=== PATIENT | female | born 1960 | race Caucasian/White ===

== ENCOUNTER → 2016-09-12 | Outpatient (CLI) | payer OTHER ==
--- NOTE | 2016-09-13 09:23 | RAD ---
DATE: 09/12/2016 EXAM: DIGITAL SCREEN BILAT W/CAD HISTORY: Screening COMPARISON: 08/10/2015 This study was interpreted with the benefit of Computerized Aided Detection (CAD). FINDINGS: The breast parenchyma Is heterogeneiously dense, which could reduce sensitivity of mammography. Breast parenchyma level C. 2-D and tomosynthesis images were obtained. There has not been a significant change in the appearance of the breasts compared to the previous exam IMPRESSION: Benign finding BI-RADS CATEGORY: 2 BENIGN FINDING(S) RECOMMENDED FOLLOW-UP: 12M 12 MONTH FOLLOW-UP PQRS compliance statement: Patient information was entered into a reminder system with a target due date 09/12/2017 for the next mammogram. Mammography is a sensitive method for finding small breast cancers, but it does not detect them all and is not a substitute for careful clinical examination. A negative mammogram does not negate a clinically suspicious finding and should not result in delay in biopsying a clinically suspicious abnormality. "Our facility is accredited by the [employer] Mammography Program."
== END | disposition home or self-care (01) ==
LOC: MAMMO 13:23
PROVIDERS: ATTEND Nurse Practitioner
DX: Z12.31 Encounter for screening mammogram for malignant neoplasm of breast (principal)
CPT/HCPCS: G0202; 77067

== ENCOUNTER → 2018-07-30 | Outpatient (CLI) | payer OTHER ==
--- NOTE | 2018-07-30 17:28 | RAD ---
DATE: 07/30/2018 EXAM: DIGITAL SCREEN BILAT W/CAD HISTORY: Routine screening COMPARISON: 06/30/2014, 08/10/2015, and 09/12/2016 mammographic exams This study was interpreted with the benefit of Computerized Aided Detection (CAD). Breast Density: HETERO The breast parenchyma is heterogenously dense, which could reduce sensitivity of mammography. Breast parenchyma level C. FINDINGS: Asymmetry involving the right outer breast is noted correlation probably related to summation artifact. No suspicious calcification clusters, definite masses, or distortion. IMPRESSION: Asymmetry of the right outer breast. Spot compression is recommended. Ultrasound may be needed. Left breast is stable and unremarkable. BI-RADS CATEGORY: 0 INCOMPLETE: NEEDS ADDITIONAL IMAGING EVALUATION AND/OR PRIOR MAMMOGRAMS FOR COMPARISON. RECOMMENDED FOLLOW-UP: ADD ADDITIONAL IMAGING PQRS compliance statement: Patient information was entered into a reminder system with a target due date of now for the next mammogram. Mammography is a sensitive method for finding small breast cancers, but it does not detect them all and is not a substitute for careful clinical examination. A negative mammogram does not negate a clinically suspicious finding and should not result in delay in biopsying a clinically suspicious abnormality. "Our facility is accredited by the [employer] Mammography Program."
== END | disposition home or self-care (01) ==
LOC: MAMMO 14:02
PROVIDERS: ATTEND Nurse Practitioner Family
DX: Z12.31 Encounter for screening mammogram for malignant neoplasm of breast (principal)
CPT/HCPCS: 77067

== ENCOUNTER → 2018-08-13 | Outpatient (CLI) | payer OTHER ==
--- NOTE | 2018-08-13 12:11 | RAD ---
DATE: 08/13/2018 EXAM: DIGITAL DIAGNOSTIC RT HISTORY: Suspicious screening study COMPARISON: 07/30/2018, 09/12/2016 This study was interpreted with the benefit of Computerized Aided Detection (CAD). Breast Density: HETERO The breast parenchyma is heterogenously dense, which could reduce sensitivity of mammography. Breast parenchyma level C. FINDINGS: Additional views of the right breast including spot compression and CC tomosynthesis imaging was performed. A small nodule is identified in the lateral periareolar region as best seen on CC tomosynthesis images #18. Right breast ultrasound, 08/13/2018: A targeted ultrasound exam of the lateral right periareolar region was performed. At the 10:00 location there is a small predominantly cystic nodule measuring 7 x 3 x 7 cm. It is wider than tall. There is posterior acoustic enhancement. There are thin internal septations. No internal color flow is seen. The appearance is that of a septated cyst. This corresponds in location to the mammographic abnormality. No other abnormalities seen in this region. IMPRESSION: Probably benign small septated cyst in the lateral periareolar region. Sonographic surveillance beginning in 6 months in addition to regular yearly mammography is suggested. BI-RADS CATEGORY: 3 PROBABLY BENIGN FINDING(S)-SHORT INTERVAL FOLLOW-UP SUGGESTED RECOMMENDED FOLLOW-UP: 6M 6 MONTH FOLLOW-UP PQRS compliance statement: Patient information was entered into a reminder system with a target due date for the next mammogram. Mammography is a sensitive method for finding small breast cancers, but it does not detect them all and is not a substitute for careful clinical examination. A negative mammogram does not negate a clinically suspicious finding and should not result in delay in biopsying a clinically suspicious abnormality. "Our facility is accredited by the [employer] Mammography Program."
== END | disposition home or self-care (01) ==
LOC: MAMMO 10:51
PROVIDERS: ATTEND Nurse Practitioner Family
DX: N63.11 Unspecified lump in the right breast, upper outer quadrant (principal)
CPT/HCPCS: 76641; 77065

== ENCOUNTER → 2019-01-28 | Outpatient (CLI) | payer OTHER ==
--- NOTE | 2019-01-29 13:57 | RAD ---
Examination: BREAST RIGHT History: Abnormal right breast ultrasound exam Comparison/Correlation: 08/13/2018 right breast ultrasound exam, 08/13/2018 right unilateral mammographic exam, 07/30/2018 screening mammographic exam, 09/12/2016 screening mammographic exam Findings: Limited right breast ultrasound examination of the 10:00 region was performed. Complex cystic structure again is present measuring 0.7 cm x 0.7 cm x 0.3 cm tall. Septations and internal echoes are present. No flow within it. Impression: BI-RADS Category 3-probably benign. Stable complex cyst involving the right breast 10:00 region. Follow-up at the time of annual screening with ultrasound exam is recommended. Electronically signed by: Brian Selby MD (01/29/2019 1:54 PM) [facility]
== END | disposition home or self-care (01) ==
LOC: MAMMO 14:38
PROVIDERS: ATTEND Nurse Practitioner Family
DX: N60.01 Solitary cyst of right breast (principal)
CPT/HCPCS: 76641

== ENCOUNTER → 2019-09-02 | Outpatient (CLI) | payer OTHER ==
--- NOTE | 2019-09-02 20:04 | RAD ---
EXAMINATION: DIGITAL DIAGNOSTIC BILATERAL, BREAST RIGHT HISTORY: Abnormal right breast ultrasound and mammogram COMPARISON/CORRELATION: 07/30/2018, 09/12/2016, 08/10/2015, 06/30/2014 FINDINGS: Full-field digital diagnostic mammography was performed bilaterally. MLO and CC projections bilaterally were provided. CAD was utilized. The breasts are heterogeneously dense, which may obscure small masses. Small mass is evident at the right lower inner breast. This is not seen on the prior exam. Asymmetry of the posterior left outer breast does not persist upon spot compression imaging. No suspicious calcification or distortion. Limited ultrasound imaging of the right breast at the 10:00 region demonstrates a hypoechoic mass measuring 0.3 cm x 0.22 cm tall by 0.3 cm. It is well-circumscribed with a somewhat lobulated contour. No flow within it. This corresponds to the site of previously present complex cyst. At the right breast 3:00 region 2.5 cm from the nipple, there is a septated complex cystic structure with internal echoes which measures 0.6 cm x 0.53 cm tall by 0.5 cm. No flow evident within it. This finding corresponds to the new mammographic mass. IMPRESSION: BI-RADS Category: 3: Probably Benign. Six-month follow-up right diagnostic mammogram and right breast ultrasound exams recommended to assess stability. Patient information is entered into reminder system with a target due date for the next screening mammogram. Mammography is the most sensitive method for finding small breast cancers, but it does not detect them all and is not a substitute for careful clinical examination. A negative mammogram does not negate a clinically suspicious finding and should not result in delay in biopsying a clinically suspicious abnormality. "Our facility is accredited by the [employer] Mammography Program." Electronically signed by: Brian Selby MD (09/02/2019 8:01 PM) [email or web address]
== END | disposition home or self-care (01) ==
LOC: MAMMO 12:47
PROVIDERS: ATTEND Nurse Practitioner Family
DX: N63.14 Unspecified lump in the right breast, lower inner quadrant (principal); N60.11 Diffuse cystic mastopathy of right breast
CPT/HCPCS: 76641; 77066

== ENCOUNTER → 2020-03-17 | Outpatient (CLI) | payer OTHER ==
--- NOTE | 2020-03-19 08:22 | RAD ---
Examination: DIGITAL DIAGNOSTIC RT, BREAST RIGHT History: Reason: [id number] MAMMOGRAM 6 MONTH FOLLOW UP / Spl. Instructions: / History: Comparison/Correlation: None FINDINGS: Full-field digital diagnostic mammographic exam of the right breast was performed. MLO and CC projections were provided. Tomosynthesis was performed. CAD was utilized. The breasts are heterogeneously dense, which may obscure small masses. No suspicious asymmetry. No new masses previously evident in either breast asymmetry on the CC projection on 09/02/2019 is not having corresponding finding currently. There are no suspicious calcification clusters. No new masses or new distortion. Limited right breast ultrasound examination of the 10:00 region hypoechoic structure 1 cm from the nipple measures 0.2 cm 0.27 x 0.1 cm. This represents a decrease compared to previous exam by 0.1 cm in all dimensions. At the 3:00 region to 6.5 cm from nipple, there is a 0.30 0.3 cm 0.2 cm hypoechoic or complex cystic structure which is decreased in size compared to the previous exam bilaterally 0.2 cm in each dimension. Previously evident septation no longer evident. Benign-appearing axillary lymph nodes are present. IMPRESSION: Right breast - BI-RADS Category: 3: Probably Benign. Diagnostic mammographic evaluation 6 months post with ultrasound recommended to assess continued stability. Electronically signed by: Brian Selby MD (03/19/2020 8:20 AM) [email or web address]
== END | disposition home or self-care (01) ==
LOC: MAMMO 12:57
PROVIDERS: ATTEND Nurse Practitioner Family
DX: R92.2 Inconclusive mammogram (principal)
CPT/HCPCS: 76641; 77065

== ENCOUNTER → 2020-10-20 | Outpatient (CLI) | payer OTHER ==
--- NOTE | 2020-10-20 14:02 | RAD ---
PROCEDURE: MG DIAGNOSTIC BILAT, US BREAST RT HISTORY: The patient is 59 years old and is seen for Reason: 6 MONTH FOLLOW UP / Spl. Instructions: / History: . COMPARISON: Ultrasound March 17, 2020, right main bowel March 17, 2020, September 02, 2019, January [id number]. TECHNIQUE: CC and MLO views of both breasts were obtained. Images were processed by the [employer] computer-aided detection system. Right breast targeted ultrasound. DENSITY: The breast parenchyma is heterogeneously dense. This may lower the sensitivity of mammograph y. FINDINGS: Right mammogram: Decreased previously seen asymmetry within the right medial breast. No new mass, arc hitectural distortion or suspicious macrocalcification. Right ultrasound: Previously seen complicated cystic lesion within the right breast 3:00 position is significantly decreased in size. Previously seen complicated cystic lesion at the 10:00 position is n o longer identified. Left mammogram: Well-circumscribed mass within the left upper outer breast is unchanged. No new suspi cious microcalcification, mass or architectural distortion. IMPRESSION: Decreased and resolved complicated cystic lesions within the right breast. Recommend annual screening mammograms per [employer] guidelines. She will be due in one year. BI-RADS category 2 Benign Patient entered into a reminder system for annual screening mammogram. Electronically signed by: Francois Meyers DO (10/20/2020 2:00 PM) [email or web address]
--- NOTE | 2020-10-20 14:02 | RAD ---
PROCEDURE: MG DIAGNOSTIC BILAT, US BREAST RT HISTORY: The patient is 59 years old and is seen for Reason: 6 MONTH FOLLOW UP / Spl. Instructions: / History: . COMPARISON: Ultrasound March 17, 2020, right main bowel March 17, 2020, September 02, 2019, January [id number]. TECHNIQUE: CC and MLO views of both breasts were obtained. Images were processed by the [employer] computer-aided detection system. Right breast targeted ultrasound. DENSITY: The breast parenchyma is heterogeneously dense. This may lower the sensitivity of mammograph y. FINDINGS: Right mammogram: Decreased previously seen asymmetry within the right medial breast. No new mass, arc hitectural distortion or suspicious macrocalcification. Right ultrasound: Previously seen complicated cystic lesion within the right breast 3:00 position is significantly decreased in size. Previously seen complicated cystic lesion at the 10:00 position is n o longer identified. Left mammogram: Well-circumscribed mass within the left upper outer breast is unchanged. No new suspi cious microcalcification, mass or architectural distortion. IMPRESSION: Decreased and resolved complicated cystic lesions within the right breast. Recommend annual screening mammograms per [employer] guidelines. She will be due in one year. BI-RADS category 2 Benign Patient entered into a reminder system for annual screening mammogram. Electronically signed by: Francois Meyers DO (10/20/2020 2:00 PM) [email or web address]
== END ==
LOC: MAMMO 12:54
PROVIDERS: ATTEND Nurse Practitioner Family
DX: N63.12 Unspecified lump in the right breast, upper inner quadrant (principal)
CPT/HCPCS: 76641; 77066